=== PATIENT | female | born 1985 | race Caucasian/White ===

== ENCOUNTER 2017-02-18 16:07 | Day surgery (SDC) | payer OTHER ==
[2017-02-17 14:29] VITALS: BMI 28.9
[2017-02-18] MEDS ORDERED: ONDANSETRON 4 MG/2 ML VIAL IVPUSH PRN (16:14)
[2017-02-18] MEDS ORDERED: oxyCODONE HCL 5 MG TABLET PO PRN (16:14)
[2017-02-18] MEDS ORDERED: ONDANSETRON 4 MG/2 ML VIAL ONE (17:39)
[2017-02-18] MEDS ORDERED: PROPOFOL 20 ML ONE (17:39)
[2017-02-18] MEDS ORDERED: MIDAZOLAM HCL 2 MG/2 ML SINGLE DOSE VIAL ONE ×2 (17:39)
[2017-02-18] MEDS ORDERED: DEXAMETHASONE SOD PHOSPHATE 4 MG/1 ML VIAL ONE (17:39)
[2017-02-18] MEDS ORDERED: KETOROLAC TROMETHAMINE 30 MG/1 ML VIAL ONE (18:21)
[2017-02-18] MEDS ORDERED: oxyCODONE HCL 5 MG TABLET ONE (18:55)
[2017-02-18 19:16] VITALS: BP 108/62; PULSE 74; TEMP 98
--- NOTE | 2017-02-19 10:31 | OP ---
DATE OF OPERATION: 02/18/2017 PREOPERATIVE DIAGNOSIS: Right small finger mass. POSTOPERATIVE DIAGNOSIS: Right small finger mass. OPERATIVE PROCEDURE: Right small finger mass excision. SURGEON: Lex Trammell MD ANESTHESIA: Local with sedation. COMPLICATIONS: None. ESTIMATED BLOOD LOSS: Minimal. INDICATION FOR PROCEDURE: The patient is a 31-year-old female with the above finding, indicated for operative treatment. She was previously seen in the office and had the same mass excised in the office and cauterized with silver nitrate. However, the mass quickly returned and was presumed to be a pyogenic granuloma. She was indicated for operative treatment at this point, and risks, benefits, and alternatives including the significant risk of recurrence were discussed. She desired to proceed. DESCRIPTION OF PROCEDURE: After proper identification of the patient and the correct operative site, the patient was brought to the operating room and placed supine on the operative table. Prominences were well padded. Sedation and local anesthesia were given. Right upper extremity was prepped and draped in the usual sterile fashion. Intravenous antibiotics were given. Timeout procedure was performed. An Esmarch bandage was used to exsanguinate the right upper extremity. The tourniquet was inflated to 250 mmHg. The mass had grown quite large at the tip of the finger and was found to have a base at the tip of the finger, measuring approximately 4 mm x 4 mm. The abnormal tissue extended all the way down to the tip of the distal phalanx and was excised and sent for pathological evaluation. The tip of the distal phalanx was rongeured in order to allow soft tissue coverage of this area and not to have exposed bone. The tissue was cauterized with bipolar electrocautery. The tissue, as it was circular in nature, was not able to be closed but was small enough to likely heal with secondary intention. I decided not to perform any flap at this point as I did not want to have any recurrence and then have significant soft tissue loss with this. Therefore, it was allowed to heal by secondary intention. Sterile dressings were applied. Patient was reversed from anesthesia and brought to recovery room in stable condition. She tolerated the procedure well. LEX TRAMMELL M.D. [place]/[id number]
--- NOTE | 2017-02-20 15:42 | PATH ---
Surgical Pathology Report Patient Name: DAMIAN SANCHEZ [facility]. Rec. #: [id number] /Age/Gender: 1985 (Age: 31) / F Account: [id number] Location: [facility] Taken: 02/18/2017 Received: 02/18/2017 Reported: 02/20/2017 Physicians: Lex Metz M.D. Specimen(s) Received RIGHT SMALL FINGER MASS Clinical History Right small finger mass Likely pyogenicum granuloma Final Diagnosis SMALL FINGER, RIGHT, MASS, EXCISION: LOBULAR CAPILLARY HEMANGIOMA (PYOGENIC GRANULOMA). Electronically Signed Maryjane Ledbetter M.D. Gross Description Received in formalin labelled "right small finger mass" is a 2 pieces of jacobson soft tissue each of which is 0.6 cm in greatest dimension, along with a 1.1 cm greatest dimension piece of brown tissue. The brown tissue is bisected and the specimen is totally submitted one cassette. [facility]/02/19/2017 [facility]/02/19/2017
== END 2017-02-18 20:22 | disposition home or self-care (01) ==
LOC: FASU 16:07
PROVIDERS: ATTEND Orthopaedic Surgery Hand Surgery
PROC: 0JBJ0ZZ Excision of Right Hand Subcutaneous Tissue and Fascia, Open Approach (ICD-10-PCS; principal; 2017-02-18 18:19)
DX: L98.0 Pyogenic granuloma (principal)
CPT/HCPCS: 84703; 88305-TC

== ENCOUNTER 2017-11-14 23:49 | Emergency (ER) | payer OTHER ==
[2017-11-14 23:57] VITALS: BP 149/89; PULSE 55; TEMP 98; BMI 30.2
--- NOTE | 2017-11-15 00:02 | PDOC ---
History of Present Illness - General Chief Complaint: Headache Stated Complaint: S.O.B Time Seen by Provider: 11/14/17 23:52 - History of Present Illness Initial Comments: 11/15/17 00:19 Ms. Mclain is a 32 yo female w/ pmh of HTN and HLD who presents for evaluation of headache starting shortly before arrival earlier today. Per patient and she was feeling like her normal self until earlier when she began to have frontal headache with coinciding abdominal / throat pain. Ms. Mclain describes her pain as starting at her throat and traveling up her left lateral neck to her head. The patient denies chest pain, shortness of breath, and dizziness. Denies fever , chills, nausea, vomit, diarrhea and constipation. Denies dysuria, frequency, urgency and hematuria. Allergies: NKDA Past History - Past Medical History Allergies/Adverse Reactions: Allergies Allergy/AdvReac Type Severity Reaction Status Date / Time No Known Drug Allergies Allergy Verified 11/14/17 23:51 Home Medications: Ambulatory Orders NK [No Known Home Medication] 02/17/17 Anemia: No Asthma: No Cancer: No Cardiac Disorders: No CVA: No COPD: No CHF: No Dementia: No Diabetes: No GI Disorders: No Disorders: No HTN: No Hypercholesterolemia: No Liver Disease: No Seizures: No Thyroid Disease: No - Surgical History Abdominal Surgery: No Appendectomy: No Cardiac Surgery: No Cholecystectomy: No Lung Surgery: No Neurologic Surgery: No Orthopedic Surgery: No - Suicide/Smoking/Psychosocial Hx Smoking History: Never smoked Have you smoked in the past 12 months: No Information on smoking cessation initiated: No Hx Alcohol Use: No Drug/Substance Use Hx: No Substance Use Type: None Hx Substance Use Treatment: No Review of Systems - Review of Systems Comments:: 11/15/17 02:53 GENERAL/CONSTITUTIONAL: No fever or chills. No weakness. HEAD, EYES, EARS, NOSE AND THROAT: +Left sided neck pain, No change in vision. No ear pain or discharge. No sore throat. CARDIOVASCULAR: No chest pain or shortness of breath RESPIRATORY: No cough, wheezing, or hemoptysis. GASTROINTESTINAL: +Generalized abdominal pain, no nausea, vomiting, diarrhea or constipation. GENITOURINARY: No dysuria, frequency, or change in urination. MUSCULOSKELETAL: No joint or muscle swelling or pain. No neck or back pain. SKIN: No rash NEUROLOGIC: +Headache as described, no vertigo, loss of consciousness, or change in strength/sensation. ENDOCRINE: No increased thirst. No abnormal weight change HEMATOLOGIC/LYMPHATIC: No anemia, easy bleeding, or history of blood clots. ALLERGIC/IMMUNOLOGIC: No hives or skin allergy. *Physical Exam - Vital Signs Last Vital Signs Temp Pulse Resp BP Pulse Ox 98.0 F 55 L 18 149/89 100 11/14/17 23:51 11/14/17 23:51 11/14/17 23:51 11/14/17 23:51 11/14/17 23:51 - Physical Exam Comments: 11/15/17 02:53 GENERAL: Awake, alert, and fully oriented, in no acute distress HEAD: No signs of trauma, normocephalic, atraumatic EYES: PERRLA, EOMI, sclera anicteric, conjunctiva clear ENT: Auricles normal inspection, hearing grossly normal, nares patent, oropharynx clear without exudates. Moist mucosa NECK: Normal ROM, supple, no lymphadenopathy, JVD, or masses LUNGS: No distress, speaks full sentences, clear to auscultation bilaterally HEART: Regular rate and rhythm, normal S1 and S2, no murmurs, rubs or gallops, peripheral pulses normal and equal bilaterally. ABDOMEN: +Nonspecific abdominal TTP. Soft, normoactive bowel sounds. No guarding , no rebound. No masses EXTREMITIES: Normal inspection, Normal range of motion, no edema. No clubbing or cyanosis. NEUROLOGICAL: Cranial nerves II through XII grossly intact. Normal speech, normal gait, no focal sensorimotor deficits SKIN: Warm, Dry, normal turgor, no rashes or lesions noted. ED Treatment Course - LABORATORY CBC & Chemistry Diagram: 11/15/17 00:30 11/15/17 00:30 Medical Decision Making - Medical Decision Making 11/15/17 02:57 Ms. Mclain is a 32 yo female w/ pmh as described who presents for evaluation of headache and throat pain. Patient given fluids and reglan for symptomatic relief. Abdominal pain gone on repeat exam. Headache with Left sided neck pain concerning for aortic dissection vs. aneurysm; CTA sent for evaluation. Patient reporting relief from headache with reglan. 11/15/17 03:18 CTA/Neck negative for acute process. Labs grossly unconcerning as below. Patient denies any urinary symptoms so concern for UTI low at this time. Patient reporting generalized relief from symptoms. Discharging patient to home. Laboratory Results - last 24 hr 11/15/17 11/15/17 11/15/17 00:30 00:30 00:30 WBC 8.0 RBC 4.81 Hgb 10.9 Hct 34.2 MCV 71.2 L MCH 22.7 L MCHC 31.9 L RDW 18.0 H Plt Count 197 D MPV 10.3 D Absolute Neuts (auto) 3.8 Neutrophils % 48.0 D Lymphocytes % 40.1 H D Monocytes % 9.8 Eosinophils % 1.2 D Basophils % 0.9 Nucleated RBC % 0 Sodium 140 Potassium 4.0 Chloride 109 H Carbon Dioxide 24 Anion Gap 7 L BUN 14 Creatinine 0.6 Creat Clearance w eGFR > 60 Random Glucose 104 Calcium 8.6 Total Bilirubin 0.3 AST 28 ALT 42 Alkaline Phosphatase 127 H Creatine Kinase 183 Troponin I < 0.02 Total Protein 7.6 Albumin 3.6 Urine Color Colorless Urine Appearance Clear Urine pH 6.0 Ur Specific [place] 1.002 Urine Protein Negative Urine Glucose (UA) Negative Urine Ketones Negative Urine Blood Negative Urine Nitrite Negative Urine Bilirubin Negative Urine Urobilinogen Negative Ur Leukocyte Esterase 2+ H Urine WBC (Auto) 15 Urine RBC (Auto) 1 Ur Epithelial Cells Rare Urine Bacteria Rare Urine HCG, Qual Negative *DC/Admit/Observation/Transfer Diagnosis at time of Disposition: Neck pain Headache Qualifiers: Headache type: unspecified Headache chronicity pattern: unspecified pattern Intractability: not intractable Qualified Code(s): R51 - Headache - Discharge Dispostion Disposition: HOME - Referrals - Patient Instructions Printed Discharge Instructions: DI for Headache Additional Instructions: Please follow-up with primary care provider later this week for further evaluation. Return to ER if any return of pain, fever, chills, or other concerning symptoms. Print Language: ROMANSH - Post Discharge Activity
[2017-11-15] MEDS ORDERED: METOCLOPRAMIDE HCL INJECTION 10 MG/2 ML VIAL ONE (00:16)
[2017-11-15] MEDS ORDERED: SODIUM CHLORIDE 1,000 ML IV STA (00:16)
[2017-11-15] MEDS ORDERED: METOCLOPRAMIDE HCL INJECTION 10 MG/2 ML VIAL IVPB ONE (00:18)
[2017-11-15 00:48] LABS: BASO % 0.9 % (0-2.0); EOS % 1.2 % (0-4.5); HEMATOCRIT 34.2 % (32.4-45.2); HEMOGLOBIN 10.9 GM/dL (10.7-15.3); LYMPH % 40.1 % (8-40); MCH 22.7 pg (25.7-33.7); MCHC 31.9 g/dl (32.0-36.0); MEAN CELL VOLUME 71.2 fl (80-96); MEAN PLT VOLUME 10.3 fl (7.5-11.1); MONO % 9.8 % (3.8-10.2); PLATELET COUNT 197 K/MM3 (134-434); RBC 4.81 M/mm3 (3.60-5.2)
[2017-11-15 00:58] LABS: URINE APPEARANCE CLEAR; URINE BILIRUBIN NEGATIVE (<2.0 mg/dL); URINE COLOR COLORLESS; URINE GLUCOSE (UA) NEGATIVE (NEGATIVE); URINE KETONE NEGATIVE (NEGATIVE); URINE NITRITE NEGATIVE (NEGATIVE); URINE PROTEIN NEGATIVE (NEGATIVE); URINE UROBILINOGEN NEGATIVE mg/dL (0.2-1.0)
[2017-11-15 01:01] LABS: URINE LEUK ESTERASE 2+ (NEGATIVE)
[2017-11-15] MEDS ORDERED: MAG HYDROX/AL HYDROX/SIMETH 30 ML UNIT-DOSE CUP PO ONE (01:02)
[2017-11-15] MEDS ORDERED: FAMOTIDINE 20 MG/50 ML IVPB 20 MG/50 ML MG IVPB ONE ×2 (01:02→01:04)
[2017-11-15] MEDS ORDERED: MAG HYDROX/AL HYDROX/SIMETH 30 ML UNIT-DOSE CUP ONE (01:04)
[2017-11-15 01:05] LABS: HCG,QUALITATIVE URINE NEGATIVE
[2017-11-15 01:09] LABS: EPI CELLS RARE /HPF (FEW); URINE BACTERIA RARE /hpf (NONE SEEN)
[2017-11-15 01:25] LABS: ALBUMIN 3.6 g/dl (3.4-5.0); ANION GAP 7 (8-16); BLOOD UREA NITROGEN 14 mg/dL (7-18); CALCIUM 8.6 mg/dL (8.5-10.1); CHLORIDE 109 mmol/L (98-107); CO2 24 mmol/L (21-32); CREATININE 0.6 mg/dL (0.55-1.02); GLUCOSE,RANDOM 104 mg/dL (74-106); SGOT/AST 28 U/L (15-37); SGPT/ALT 42 U/L (12-78); SODIUM 140 mmol/L (136-145)
[2017-11-15 01:28] LABS: ALK PHOS 127 U/L (45-117); BILIRUBIN,TOTAL 0.3 mg/dL (0.2-1.0); TOT PROT 7.6 g/dl (6.4-8.2)
--- NOTE | 2017-11-15 02:37 | PDOC ---
Attending Attestation - Resident Resident Name: Jimenez Devi - ED Attending Attestation I have performed the following: I have examined & evaluated the patient, The case was reviewed & discussed with the resident, I agree w/resident's findings & plan, Exceptions are as noted - HPI HPI: 11/15/17 03:36 Patient is a 32 year old female with a significant past medical history of HTN and HLD who presents to the ED with a headache since 10pm. Patient reports initially experiencing left sided neck pain that she states was pinching/pulse like pain in her "throat" followed by an associated frontal head pain. The headache gradually progressed over 3 hours prompting her to come to the ED. Patient reports waffed alcohol under her nose with minimal relief for 50 minutes before coming to the ED. Denies stiff neck, focal weakness, numbness , dizziness. Denies fevers/chills. Denies visual sxs. Denies N/V. States her headache has resolved during my evaluation. Denies chest pain, Sob. Denies contact with sick individuals, out of state travelling. Denies any other symptoms. Allergies: None Social history: Lives with . No smoking. No alcohol. No illicit drugs Surgical history: None PMD: Dr. Monie Grier - Physicial Exam PE: 11/15/17 03:44 GENERAL: Awake, alert, and fully oriented, in no acute distress HEAD: No signs of trauma EYES: PERRLA, EOMI, sclera anicteric, conjunctiva clear ENT: Auricles normal inspection, hearing grossly normal, nares patent, oropharynx clear without exudates. Moist mucosa NECK: Normal ROM, supple, no lymphadenopathy, JVD, or masses LUNGS: Breath sounds equal, clear to auscultation bilaterally. No wheezes, and no crackles HEART: Regular rate and rhythm, normal S1 and S2, no murmurs, rubs or gallops ABDOMEN: Soft, nontender, normoactive bowel sounds. No guarding, no rebound. No masses EXTREMITIES: Normal range of motion, no edema. No clubbing or cyanosis. No cords, erythema, or tenderness BACK: No midline spinal tenderness in cervical/thoracic/lumbar region NEUROLOGICAL: Normal speech, cranial nerves intact, negative pronator drift, 5/ 5 strength in all 4 extremities, normal sensation to light touch in all 4 extremities, normal cerebellar exam, normal gait, normal reflexes and tone SKIN: Warm, Dry, normal turgor, no rashes or lesions noted. - Medical Decision Making 11/15/17 03:45 32yo F hx HTN, HL presents to the ED with headache preceded by neck/throat pain. Vitals wnl. Exam wnl. Resolution of headache is reassuring but preceding neck pain is concerning for possible carotid artery dissection. As such, CTA head/neck was done which was negative. Likely tension/migraine headache. Pt neuro intact throughout. Unlikely SAH as no thunderclap quality, did not peak within 30 mins, no neck stiffness, meningismus or hard neuro findings. Pt requesting DC, given return precautions. I discussed the physical exam findings, ancillary test results and final diagnoses with the patient. I answered all of the patient's questions. The patient was satisfied with the care received and felt comfortable with the discharge plan and treatment plan. The patient will call their primary care physician within 24 hours to arrange follow-up and will return to the Emergency Department with any new, persistent or worsening symptoms. Heart Score/ECG Review #1 11/15/17 03:44 Twelve-lead EKG was performed and reviewed by me. Sinus bradycardia, rate 53. Normal axis and intervals. No ST elevations. Isolated T-wave inversion in lead 3.
--- NOTE | 2017-11-16 17:37 | EKG ---
Test Reason : Blood Pressure : / mmHG Vent. Rate : 053 BPM Atrial Rate : 053 BPM P-R Int : 158 ms QRS Dur : 086 ms QT Int : 458 ms P-R-T Axes : 036 022 021 degrees QTc Int : 429 ms SINUS BRADYCARDIA OTHERWISE NORMAL ECG NO PREVIOUS ECGS AVAILABLE Confirmed by DMITRI QUINTERO MD ([id number]) on 11/16/2017 5:36:25 PM Referred By: Confirmed By:DMITRI QUINTERO MD
== END 2017-11-15 04:09 | disposition home or self-care (01) ==
LOC: JER 23:49
PROC: 3E0337Z Introduction of Electrolytic and Water Balance Substance into Peripheral Vein, Percutaneous Approach (ICD-10-PCS; principal; 2017-11-14)
PROC: 3E033GC Introduction of Other Therapeutic Substance into Peripheral Vein, Percutaneous Approach (ICD-10-PCS; 2017-11-14)
PROC: 3E033GC Introduction of Other Therapeutic Substance into Peripheral Vein, Percutaneous Approach (ICD-10-PCS; 2017-11-14)
DX: M54.2 Cervicalgia (principal); R51 Headache; I10 Essential (primary) hypertension; E78.00 Pure hypercholesterolemia, unspecified
CPT/HCPCS: 36415; 70496-TC; 70498-TC; 80053; 81003; 81015; 82550; 82553; 84484; 84703; 85025; 87086; 93005; 93010; 96361; 96365; 96375; 99282-25; J7030

== ENCOUNTER 2018-06-21 07:19 | Emergency (ER) | payer OTHER ==
[2018-06-21 07:40] VITALS: BMI 27.3
[2018-06-21] MEDS ORDERED: SODIUM CHLORIDE 1,000 ML IV STA (08:28)
[2018-06-21] MEDS ORDERED: METOCLOPRAMIDE HCL INJECTION 10 MG/2 ML VIAL IVPUSH ONE (08:29)
[2018-06-21] MEDS ORDERED: METOCLOPRAMIDE HCL INJECTION 10 MG/2 ML VIAL ONE (08:35)
--- NOTE | 2018-06-21 08:45 | PDOC ---
Attending Attestation - Resident Resident Name: Jese Chen - ED Attending Attestation I have performed the following: I have examined & evaluated the patient, The case was reviewed & discussed with the resident, I agree w/resident's findings & plan, Exceptions are as noted - HPI HPI: 32 yo F history HTN, HL presents with headache, shortness of breath since this morning. +Weakness, tingling in hands. +Frontal headache. - Physicial Exam PE: GENERAL: Awake, alert, and fully oriented, in no acute distress HEAD: No signs of trauma EYES: PERRLA, EOMI, sclera anicteric, conjunctiva clear ENT: Auricles normal inspection, hearing grossly normal, nares patent, oropharynx clear without exudates. Moist mucosa NECK: Normal ROM, supple, no lymphadenopathy, JVD, or masses LUNGS: Breath sounds equal, clear to auscultation bilaterally. No wheezes, and no crackles HEART: Regular rate and rhythm, normal S1 and S2, no murmurs, rubs or gallops ABDOMEN: Soft, nontender, normoactive bowel sounds. No guarding, no rebound. No masses EXTREMITIES: Normal range of motion, no edema. No clubbing or cyanosis. No cords, erythema, or tenderness NEUROLOGICAL: Cranial nerves II through XII grossly intact. Normal speech, normal gait. Motor and sensation intact SKIN: Warm, Dry, normal turgor, no rashes or lesions noted. - Medical Decision Making No acute findings on labs, CXR. Pt improved with fluids, reglan, tylenol. No acute findings on exam.
[2018-06-21 09:05] LABS: BASO % 0.8 % (0-2.0); HEMATOCRIT 34.6 % (32.4-45.2); HEMOGLOBIN 11.5 GM/dL (10.7-15.3); LYMPH % 34.2 % (8-40); MCH 24.2 pg (25.7-33.7); MCHC 33.3 g/dl (32.0-36.0); MEAN CELL VOLUME 72.6 fl (80-96); MEAN PLT VOLUME 9.9 fl (7.5-11.1); MONO % 8.6 % (3.8-10.2); NEUT % 55.4 % (42.8-82.8); PLATELET COUNT 176 K/MM3 (134-434); RBC 4.77 M/mm3 (3.60-5.2); RDW 17.6 % (11.6-15.6); WHITE BLOOD COUNT 4.5 K/mm3 (4.0-10.0)
[2018-06-21] MEDS ORDERED: ACETAMINOPHEN 1000 MG/100 ML VIAL (NON FORMULARY) IVPB ONE (09:09)
[2018-06-21] MEDS ORDERED: ACETAMINOPHEN INJECTION 100 ML IVPB ONE (09:18)
[2018-06-21 09:23] LABS: ALBUMIN 3.7 g/dl (3.4-5.0); ALK PHOS 113 U/L (45-117); ANION GAP 6 MMOL/L (8-16); BILIRUBIN,TOTAL 0.3 mg/dL (0.2-1); BLOOD UREA NITROGEN 12 mg/dL (7-18); CALCIUM 8.6 mg/dL (8.5-10.1); CHLORIDE 108 mmol/L (98-107); CO2 25 mmol/L (21-32); CREATININE 0.6 mg/dL (0.55-1.3); GLUCOSE,RANDOM 111 mg/dL (74-106); POTASSIUM 4.4 mmol/L (3.5-5.1); SGOT/AST 27 U/L (15-37); SGPT/ALT 56 U/L (13-61); SODIUM 139 mmol/L (136-145); TOT PROT 7.6 g/dl (6.4-8.2)
--- NOTE | 2018-06-21 09:43 | PDOC ---
History of Present Illness - General Stated Complaint: DIFF BREATHING Time Seen by Provider: 06/21/18 08:03 History Source: Patient Exam Limitations: Language Barrier (phone int used) - History of Present Illness Initial Comments: 06/21/18 09:37 Patient is a 32F with history of HTN and HLD here today complaining of headache , shortness of breath that started this morning. She states that she woke up this morning feeling fine, when she suddenly started feeling short of breath with weakness and tingling in her hands. She denies chest pain. This lasted for a few minutes before it passed. She states that she now has a headache that is worse in along her forehead. Denies neck pain, fever. Endorses chills. Endorses an episode of vomiting. Denies abdominal pain, dysuria. Past History - Past Medical History Allergies/Adverse Reactions: Allergies Allergy/AdvReac Type Severity Reaction Status Date / Time No Known Drug Allergies Allergy Verified 06/21/18 07:40 Home Medications: Ambulatory Orders NK [No Known Home Medication] 02/17/17 Anemia: No Asthma: No Cancer: No Cardiac Disorders: No CVA: No COPD: No CHF: No Dementia: No Diabetes: No GI Disorders: No Disorders: No HTN: No Hypercholesterolemia: No Liver Disease: No Seizures: No Thyroid Disease: No - Surgical History Abdominal Surgery: No Appendectomy: No Cardiac Surgery: No Cholecystectomy: No Lung Surgery: No Neurologic Surgery: No Orthopedic Surgery: No - Immunization History Immunization Up to Date: Yes - Suicide/Smoking/Psychosocial Hx Smoking History: Never smoked Have you smoked in the past 12 months: No Information on smoking cessation initiated: No Hx Alcohol Use: No Drug/Substance Use Hx: No Substance Use Type: None Hx Substance Use Treatment: No Review of Systems - Review of Systems Comments:: 06/21/18 09:43 GENERAL/CONSTITUTIONAL: No fever or chills. No weakness. HEAD, EYES, EARS, NOSE AND THROAT: No change in vision. No sore throat. CARDIOVASCULAR: No chest pain +shortness of breath RESPIRATORY: No cough, wheezing, or hemoptysis. GASTROINTESTINAL: +nausea, +vomiting, no diarrhea or constipation. GENITOURINARY: No dysuria, frequency, or change in urination. MUSCULOSKELETAL: No joint or muscle swelling or pain. No neck or back pain. SKIN: No rash NEUROLOGIC: +headache, no vertigo, loss of consciousness, or change in strength/ sensation. ENDOCRINE: No increased thirst. No abnormal weight change HEMATOLOGIC/LYMPHATIC: No anemia, easy bleeding, or history of blood clots. ALLERGIC/IMMUNOLOGIC: No hives or skin allergy. *Physical Exam - Vital Signs Last Vital Signs Temp Pulse Resp BP Pulse Ox 97.9 F 103 H 24 H 147/77 100 06/21/18 07:20 06/21/18 07:20 06/21/18 07:20 06/21/18 07:20 06/21/18 07:20 - Physical Exam Comments: 06/21/18 09:44 GENERAL: Awake, alert, and fully oriented, in no acute distress HEAD: No signs of trauma, normocephalic, atraumatic EYES: PERRLA, EOMI, sclera anicteric, conjunctiva clear ENT: Auricles normal inspection, hearing grossly normal, nares patent, oropharynx clear without exudates. Moist mucosa NECK: Normal ROM, supple, no lymphadenopathy, JVD, or masses LUNGS: No distress, speaks full sentences, clear to auscultation bilaterally HEART: Regular rate and rhythm, normal S1 and S2, no murmurs, rubs or gallops, peripheral pulses normal and equal bilaterally. ABDOMEN: Soft, nontender, normoactive bowel sounds. No guarding, no rebound. No masses EXTREMITIES: Normal inspection, Normal range of motion, no edema. No clubbing or cyanosis. NEUROLOGICAL: Cranial nerves II through XII grossly intact. Normal speech, no focal sensorimotor deficits SKIN: Warm, Dry, normal turgor, no rashes or lesions noted. Moderate Sedation - Procedure Monitoring Vital Signs: Procedure Monitoring Vital Signs Temperature 97.9 F 06/21/18 07:20 Pulse Rate 103 H 06/21/18 07:20 Respiratory Rate 24 H 06/21/18 07:20 Blood Pressure 147/77 06/21/18 07:20 O2 Sat by Pulse Oximetry (%) 100 06/21/18 07:20 ED Treatment Course - LABORATORY CBC & Chemistry Diagram: 06/21/18 08:45 06/21/18 08:45 - ADDITIONAL ORDERS Additional order review: Laboratory Results 06/21/18 06/21/18 08:45 08:45 Sodium 139 Potassium 4.4 Chloride 108 H Carbon Dioxide 25 Anion Gap 6 L BUN 12 Creatinine 0.6 Creat Clearance w eGFR > 60 Random Glucose 111 H Calcium 8.6 Magnesium 2.0 Total Bilirubin 0.3 AST 27 ALT 56 Alkaline Phosphatase 113 Creatine Kinase 164 Troponin I < 0.02 Total Protein 7.6 Albumin 3.7 Serum , Qual Negative 06/21/18 08:45 RBC 4.77 MCV 72.6 L MCHC 33.3 RDW 17.6 H MPV 9.9 Neutrophils % 55.4 Lymphocytes % 34.2 Monocytes % 8.6 Eosinophils % 1.0 Basophils % 0.8 - RADIOLOGY Radiology Studies Ordered: Category Date Time Status CHEST PA & LAT [RAD] Stat Radiology 06/21/18 08:28 Ordered - Medications Given in the ED: ED Medications Discontinued Medications Generic Name Dose Route Start Last Admin Trade Name Naa PRN Reason Stop Dose Admin Acetaminophen 1,000 mg 06/21/18 09:09 06/21/18 09:23 Ofirmev Injection - IVPB 06/21/18 09:10 1,000 mg ONCE ONE Administration Sodium Chloride 1,000 mls @ 1,000 mls/hr 06/21/18 08:28 06/21/18 08:48 Normal Saline - IV 06/21/18 09:27 1,000 mls/hr ASDIR STA Administration Metoclopramide HCl 10 mg 06/21/18 08:29 06/21/18 08:48 Reglan Injection - IVPUSH 06/21/18 08:30 10 mg ONCE ONE Administration Medical Decision Making - Medical Decision Making 06/21/18 09:45 Patient is 32F here today with shortness of breath and headache. Vitals normal and stable. Headache not concerning for bleed/mass/infection, has had workup for headaches in past with negative workups. Says this feels like her normal headache. DDx includes, but is not limited to: near syncope, arrhythmia, panic attack. Will do cardiac workup, treat with fluids, reglan, tylenol. 06/21/18 09:58 EKG shows normal sinus rhythm with rate of 61. No st elevations/depressions. Normal axis. Normal intervals. No significant t wave abnormalities. CBC normal. CMP reassuring. Trop negative. Preg neg. CXR shows no acute cardiopulmonary process. 06/21/18 10:08 Patient reports feeling better. Will discharge home with cardio and pcp follow up. *DC/Admit/Observation/Transfer Diagnosis at time of Disposition: Shortness of breath - Discharge Dispostion Disposition: HOME Condition at time of disposition: Good Decision to Admit order: No - Referrals Referrals: Gianna Garcia MD [Primary Care Provider] - - Patient Instructions Printed Discharge Instructions: DI for Shortness of Breath Additional Instructions: Please follow up with your primary care doctor. Please also follow up with a business lawyer, a phone number has been included in your paperwork below. Please return if you have any new, worsening or concerning symptoms, especially increasing shortness of breath or chest pain. Por favor aileen un seguimiento con iqbal mdico de atencin primaria. Por favor, tambin aileen un seguimiento con un cardilogo, se clemens incluido un nmero de telfono en eli documentos a continuacin. Regrese si tiene algn sntoma nuevo, que empeora o que se relaciona con l, especialmente la dificultad para respirar o el dolor en el pecho. Print Language: TAJIK - Post Discharge Activity
[2018-06-21 10:27] LABS: INR 1.02 (0.83-1.09)
[2018-06-21 10:35] VITALS: BP 124/78; PULSE 74; TEMP 97.8
--- NOTE | 2018-06-21 13:42 | EKG ---
Test Reason : Blood Pressure : / mmHG Vent. Rate : 061 BPM Atrial Rate : 061 BPM P-R Int : 166 ms QRS Dur : 086 ms QT Int : 450 ms P-R-T Axes : 044 039 027 degrees QTc Int : 453 ms NORMAL SINUS RHYTHM NORMAL ECG WHEN COMPARED WITH ECG OF 15-NOV-2017 00:34, NO SIGNIFICANT CHANGE WAS FOUND Confirmed by DMITRI QUINTERO MD ([id number]) on 06/21/2018 1:42:08 PM Referred By: Confirmed By:DMITRI QUINTERO MD
== END 2018-06-21 10:33 | disposition home or self-care (01) ==
LOC: JER 07:19
PROC: 3E0337Z Introduction of Electrolytic and Water Balance Substance into Peripheral Vein, Percutaneous Approach (ICD-10-PCS; principal; 2018-06-21)
PROC: 3E033GC Introduction of Other Therapeutic Substance into Peripheral Vein, Percutaneous Approach (ICD-10-PCS; 2018-06-21)
PROC: 3E033NZ Introduction of Analgesics, Hypnotics, Sedatives into Peripheral Vein, Percutaneous Approach (ICD-10-PCS; 2018-06-21)
DX: R06.02 Shortness of breath (principal)
CPT/HCPCS: 36415; 71046-TC-FY; 80053; 82550; 82553; 83735; 84484; 84703; 85025; 85610; 93005; 93010; 96361; 96374; 96375; 99283-25; J0131; J7030

== ENCOUNTER 2019-01-18 13:30 | Emergency (ER) | payer OTHER ==
[2019-01-18 13:41] VITALS: BP 136/83; PULSE 73; TEMP 98.2; BMI 28.9
--- NOTE | 2019-01-18 13:42 | PDOC ---
Rapid Medical Evaluation Time Seen by Provider: 01/18/19 13:37 Medical Evaluation: Allergies Allergy/AdvReac Type Severity Reaction Status Date / Time No Known Drug Allergies Allergy Verified 06/21/18 07:40 01/18/19 13:38 Pt is a 33 y/o F who presents to the ER with difficulty swallowing. She states she swallowed a fish bone two days ago and has been unable to swallow food since then. Was seen at [facility] and was told to come over for an endoscopy to f/o foreign body Exam: Normal voice. NAD Orders: neck soft tissue Pt to proceed to the ER for further evaluation Discharge Disposition - Diagnosis Foreign body - Referrals - Patient Instructions - Post Discharge Activity
--- NOTE | 2019-01-18 14:01 | PDOC ---
History of Present Illness - General Chief Complaint: Foreign Body (FB) Stated Complaint: FOREIGN BODY IN THROAT Time Seen by Provider: 01/18/19 13:37 History Source: Patient - History of Present Illness Timing/Duration: other (last night) Past History - Past Medical History Allergies/Adverse Reactions: Allergies Allergy/AdvReac Type Severity Reaction Status Date / Time No Known Drug Allergies Allergy Verified 01/18/19 13:41 Home Medications: Ambulatory Orders NK [No Known Home Medication] 02/17/17 Anemia: No Asthma: No Cancer: No Cardiac Disorders: No CVA: No COPD: No CHF: No Dementia: No Diabetes: No GI Disorders: No Disorders: No HTN: No Hypercholesterolemia: No Liver Disease: No Psychiatric Problems: Yes (panic attack) Seizures: No Thyroid Disease: No - Surgical History Abdominal Surgery: No Appendectomy: No Cardiac Surgery: No Cholecystectomy: No Lung Surgery: No Neurologic Surgery: No Orthopedic Surgery: No - Immunization History Immunization Up to Date: Yes - Suicide/Smoking/Psychosocial Hx Smoking History: Never smoked Have you smoked in the past 12 months: No Hx Alcohol Use: No Drug/Substance Use Hx: No Substance Use Type: None Hx Substance Use Treatment: No Review of Systems - Review of Systems Constitutional: No: Chills, Fever Respiratory: No: Cough, Shortness of Breath, Stridor, Wheezing Cardiac (ROS): No: Chest Pain ABD/GI: No: Nausea, Vomiting, Abdominal cramping *Physical Exam - Vital Signs Last Vital Signs Temp Pulse Resp BP Pulse Ox 98.2 F 73 18 136/83 99 01/18/19 13:38 01/18/19 13:38 01/18/19 13:38 01/18/19 13:38 01/18/19 13:38 - Physical Exam General Appearance: Yes: Appropriately Dressed. No: Apparent Distress HEENT: positive: Normal Voice Neck: positive: Supple. negative: Lymphadenopathy (R), Lymphadenopathy (L) Respiratory/Chest: positive: Lungs Clear, Normal Breath Sounds. negative: Respiratory Distress, Stridor, Wheezing Cardiovascular: positive: Regular Rate, S1, S2 Integumentary: positive: Dry, Warm Neurologic: positive: Fully Oriented, Alert, Normal Mood/Affect Medical Decision Making - Medical Decision Making 01/18/19 14:01 33 yo F, h/o anxiety, here w/ FB sensation to throat. Pt states she ate fish bone last night and felt bone stuck in her throat. States tried eating bread, banana and water to help dislodge object without relief. States she then stuck her finger in her throat to also help dislodge object but no improvement See exam R/o retained FB after eating fish bone last night Stable w/ no resp distress -soft tissue neck pending 01/18/19 16:14 Linear density at C2-C3 level that may be artifactual versus foreign body per radiology. Will scan at this time for better eval and if retained FB, possible transfer 01/18/19 18:08 CT neg for any radiopaque FB per radiology. Pt w/ no significant discomfort at this time and able to tolerate po. Will d/c w/ GI f/u as d/w Dr Sawant *DC/Admit/Observation/Transfer Diagnosis at time of Disposition: Sensation of foreign body - Discharge Dispostion Disposition: HOME Condition at time of disposition: Good - Referrals Referrals: Nemesio Sanders MD [Staff Physician] - - Patient Instructions Additional Instructions: La tomografa computarizada no mostr cuerpos extraos, incluida la chioma de pescado en rafa momento. Los sntomas continan, por favor aileen un seguimiento con el Dr. Janee diamond GI para jhonatan posible endoscopia wilma se discuti hoy - Post Discharge Activity
== END 2019-01-18 18:40 | disposition home or self-care (01) ==
LOC: JER 13:30
DX: R09.89 Other specified symptoms and signs involving the circulatory and respiratory systems (principal); T17.228A Food in pharynx causing other injury, initial encounter; X58.XXXA Exposure to other specified factors, initial encounter; Y93.89 Activity, other specified; Y92.89 Other specified places as the place of occurrence of the external cause; Y99.8 Other external cause status
CPT/HCPCS: 70360-TC-FY; 70490-TC; 84703; 99281-25

== ENCOUNTER 2022-02-20 19:23 | Emergency (ER) | payer OTHER ==
[2022-02-20 19:32] VITALS: BP 130/92; PULSE 74; RESP 18; TEMP 98; BMI 20.3
[2022-02-20] MEDS ORDERED: SODIUM CHLORIDE 1,000 ML IV STA (20:55)
[2022-02-20] MEDS ORDERED: diazePAM 2 MG TABLET PO ONE (20:58)
[2022-02-20] MEDS ORDERED: diazePAM 2 MG TABLET ONE (21:15)
[2022-02-20 22:12] LABS: BASO % 0.4 % (0-2.0); EOS % 0.5 % (0-4.5); HEMATOCRIT 34.9 % (32.4-45.2); HEMOGLOBIN 11.3 GM/dL (10.7-15.3); LYMPH % 20.5 % (8-40); MCH 24.1 pg (25.7-33.7); MCHC 32.4 g/dl (32.0-36.0); MEAN CELL VOLUME 74.4 fl (80-96); MEAN PLT VOLUME 9.2 fl (7.5-11.1); MONO % 7.1 % (3.8-10.2); NEUT % 71.5 % (42.8-82.8); PLATELET COUNT 197 10^3/uL (134-434); RBC 4.69 M/mm3 (3.60-5.2); RDW 29.7 % (11.6-15.6); WHITE BLOOD COUNT 7.3 K/mm3 (4.0-10.0)
[2022-02-20 22:14] LABS: PH,URINE 5.5 (5.0-8.0); URINE APPEARANCE CLEAR; URINE BILIRUBIN NEGATIVE (NEGATIVE); URINE COLOR YELLOW; URINE GLUCOSE (UA) NEGATIVE (NEGATIVE); URINE KETONE NEGATIVE (NEGATIVE); URINE LEUK ESTERASE NEGATIVE (NEGATIVE); URINE NITRITE NEGATIVE (NEGATIVE); URINE PROTEIN NEGATIVE (NEGATIVE); URINE UROBILINOGEN 0.2 mg/dL (0.2-1.0)
[2022-02-20 22:16] LABS: HCG,QUALITATIVE URINE Negative
[2022-02-20 22:18] LABS: PROTHROMBIN TIME (PATIENT) 11.5 SEC (9.7-13.0)
[2022-02-20 22:20] LABS: ACTIVATED PTT 29.8 SECONDS (25.2-36.5)
[2022-02-20 22:34] LABS: CALCIUM 9.4 mg/dL (8.5-10.1)
[2022-02-20 22:35] LABS: ALBUMIN 3.7 g/dl (3.4-5.0); BLOOD UREA NITROGEN 12.5 mg/dL (7-18); MAGNESIUM 2.4 mg/dL (1.8-2.4)
[2022-02-20 22:38] LABS: CREATININE 0.5 mg/dL (0.55-1.3)
[2022-02-20 22:40] LABS: BILIRUBIN,TOTAL 0.2 mg/dL (0.2-1); TOT PROT 7.6 g/dl (6.4-8.2)
== END 2022-02-21 01:08 | disposition home or self-care (01) ==
LOC: JERFT 19:23 → JER 19:23
PROC: 3E0337Z Introduction of Electrolytic and Water Balance Substance into Peripheral Vein, Percutaneous Approach (ICD-10-PCS; principal; 2022-02-20)
DX: R07.9 Chest pain, unspecified (principal)
CPT/HCPCS: 36415; 71046-TC-FY; 80053; 81003; 83735; 84484; 84703; 85025; 85610; 85730; 93005; 93010; 99285-25